=== PATIENT | male | born 1975 | race Caucasian/White ===

== ENCOUNTER 2019-04-28 08:36 | Outpatient (CLI) | payer BC, SELFPAY ==
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
== END 2019-04-28 08:56 ==
PROVIDERS: PCP Internal Medicine; Visit Provider Specialist/Technologist Athletic Trainer
DX: M79.644 Pain in right finger(s) (principal); S62.624A Displaced fracture of middle phalanx of right ring finger, initial encounter for closed fracture; M79.89 Other specified soft tissue disorders
CPT/HCPCS: 73140

== ENCOUNTER 2020-06-18 10:20 | Outpatient (REF) | payer BC, SELFPAY ==
[2020-06-18 14:08] LABS: Abs Immature Grans 0.02 10^3/uL (0.0-0.06); Absolute Basophil Count 0.03 10^3/uL (0.0-0.2); Absolute Eosinophil Count 0.17 10^3/uL (0.0-0.7); Absolute Lymphocyte Count 1.47 10^3/uL (1.2-3.4); Absolute Monocyte Count 0.52 10^3/uL (0.1-0.8); Absolute Neutrophil Count 3.13 10^3/uL (1.2-6.7); Basophils % 0.6; Eosinophils % 3.2; HCT 48.7 % (40.0-50.0); HGB 16.4 g/dL (13.5-17.5); Immature Grans % 0.4; Lymphocytes % 27.5; MCHC 33.7 % (32.0-36.0); MCV 86.2 fL (80-95); MPV 10.2 fL (8.0-11.0); Monocytes % 9.7; Neutrophils % 58.6; Nucleated RBC 0 %; Platelet Count 241 10^3/uL (130-400); RBC 5.65 10^6/uL (4.36-5.78); RDW 12.5 % (11.8-14.1); RDW-SD 38.9 fL; WBC 5.34 10^3/uL (4.4-10.8)
[2020-06-18 14:16] LABS: ALT 37 U/L (16-63); AST 21 U/L (15-37); Albumin 3.8 g/dL (3.4-5.0); Alkaline Phosphatase 82 U/L (46-116); Anion Gap 10.2 mmol/L (3-11); BUN 20 mg/dL (7-18); Bilirubin, Total 0.6 mg/dL (0.2-1.0); CO2 26.8 mmol/L (21.0-32.0); CREATININE 1.23 mg/dL (0.70-1.30); Calcium 9.1 mg/dL (8.5-10.1); Chloride 103 mmol/L (98-107); Glucose 138 mg/dL (74-106); Potassium 4.1 mmol/L (3.5-5.1); Sodium 140 mmol/L (136-145); Total Protein 7.2 g/dL (6.4-8.2)
== END 2020-06-18 10:40 ==
LOC: NCHCN 10:20
PROVIDERS: PCP Internal Medicine; Visit Provider Family Medicine
DX: N45.1 Epididymitis (principal); R10.9 Unspecified abdominal pain
CPT/HCPCS: 80053; 85025

== ENCOUNTER 2020-10-25 19:53 | Outpatient (REF) | payer BC, SELFPAY ==
[2020-10-27 13:43] LABS: COVID-19 RT-PCR UVMMC Result Negative (Negative)
== END 2020-10-25 19:54 | disposition home or self-care (01) ==
LOC: NCHCN 19:53
PROVIDERS: PCP Internal Medicine; Visit Provider Family Medicine
DX: Z20.822 Contact with and (suspected) exposure to COVID-19 (principal)
CPT/HCPCS: U0003

== ENCOUNTER 2020-11-11 09:37 | Outpatient (REF) | payer BC, SELFPAY ==
[2020-11-11 13:29] LABS: ALT 39 U/L (16-63); AST 21 U/L (15-37); Albumin 3.7 g/dL (3.4-5.0); Alkaline Phosphatase 101 U/L (46-116); Anion Gap 5.7 mmol/L (3-11); BUN 16 mg/dL (7-18); Bilirubin, Total 0.6 mg/dL (0.2-1.0); CO2 31.3 mmol/L (21.0-32.0); CREATININE 1.3 mg/dL (0.70-1.30); Chloride 106 mmol/L (98-107); Glucose 115 mg/dL (74-106); Potassium 5.1 mmol/L (3.5-5.1); Sodium 143 mmol/L (136-145)
[2020-11-11 13:45] LABS: Cholesterol 259 mg/dL (<200); HDL Cholesterol 35 mg/dL (40-60); Triglyceride 766 mg/dL (<150)
[2020-11-11 14:14] LABS: LDL CHOLESTEROL 80 mg/dL (<100)
== END 2020-11-11 09:38 | disposition home or self-care (01) ==
LOC: NCHCN 09:37
PROVIDERS: Family Medicine; PCP Internal Medicine; Visit Provider Internal Medicine
DX: E78.1 Pure hyperglyceridemia (principal); R73.03 Prediabetes; Z00.00 Encounter for general adult medical examination without abnormal findings; Q60.0 Renal agenesis, unilateral
CPT/HCPCS: 80053; 80061; 83721

== ENCOUNTER 2020-12-12 20:26 | Emergency (ER) | payer BC, SELFPAY ==
[2020-12-12 20:33] VITALS: BP 112/84; PULSE 83; RESP 16; TEMP 36.9; O2SAT 99
[2020-12-12] MEDS: Normal Saline 1,000 ML 1000 ML IV (21:32)
[2020-12-12] MEDS: Ondansetron 4 MG/2 ML VIAL IVP (21:33)
[2020-12-12] MEDS: Ketorolac 15 MG/ML VIAL IVP (21:33)
[2020-12-12] MEDS: Acetaminophen 325 MG TAB 650 MG PO (21:36)
[2020-12-12] MEDS: predniSONE 20 MG TAB 60 MG PO (21:36)
[2020-12-12 21:51] LABS: Abs Immature Grans 0.03 10^3/uL (0.0-0.06); Absolute Basophil Count 0.05 10^3/uL (0.0-0.2); Absolute Lymphocyte Count 1.05 10^3/uL (1.2-3.4); Absolute Monocyte Count 1.03 10^3/uL (0.1-0.8); Absolute Neutrophil Count 7.35 10^3/uL (1.2-6.7); Basophils % 0.5; HCT 45.4 % (40.0-50.0); Immature Grans % 0.3; Lymphocytes % 10.6; MCV 87.8 fL (80-95); MPV 9.8 fL (8.0-11.0); Monocytes % 10.4; Neutrophils % 74.2; Nucleated RBC 0 %; Platelet Count 203 10^3/uL (130-400); RBC 5.17 10^6/uL (4.36-5.78); RDW 12.7 % (11.8-14.1); WBC 9.91 10^3/uL (4.4-10.8)
[2020-12-12 22:04] LABS: ALT 32 U/L (16-63); AST 18 U/L (15-37); Albumin 3.5 g/dL (3.4-5.0); Alkaline Phosphatase 97 U/L (46-116); Anion Gap 6.6 mmol/L (3-11); BUN 22 mg/dL (7-18); Bilirubin, Total 0.5 mg/dL (0.2-1.0); CO2 28.4 mmol/L (21.0-32.0); CREATININE 1.3 mg/dL (0.70-1.30); Calcium 8.7 mg/dL (8.5-10.1); Chloride 105 mmol/L (98-107); Glucose 103 mg/dL (74-106); Sodium 140 mmol/L (136-145); Total Protein 6.7 g/dL (6.4-8.2)
[2020-12-12 22:06] LABS: Creatine Kinase 165 U/L (39-308)
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
== END 2020-12-12 23:50 | disposition home or self-care (01) ==
PROVIDERS: Emergency Provider Physician Assistant; PCP Internal Medicine
DX: L23.7 Allergic contact dermatitis due to plants, except food (principal); R11.2 Nausea with vomiting, unspecified
CPT/HCPCS: 36415; 80053; 82550; 96361; 96374; 96375; 99284; 85025; J1885; J2405; J7512

== ENCOUNTER 2021-05-11 09:04 | Outpatient (REF) | payer BC, SELFPAY ==
[2021-05-11 15:45] LABS: ALT 39 U/L (16-63); AST 21 U/L (15-37); Alkaline Phosphatase 85 U/L (46-116); Anion Gap 7.2 mmol/L (3-11); BUN 19 mg/dL (7-18); Bilirubin, Total 0.6 mg/dL (0.2-1.0); CO2 30.8 mmol/L (21.0-32.0); CREATININE 1.2 mg/dL (0.70-1.30); Calcium 9.1 mg/dL (8.5-10.1); Chloride 104 mmol/L (98-107); Cholesterol 258 mg/dL (<200); Glucose 107 mg/dL (74-106); HDL Cholesterol 40 mg/dL (40-60); Potassium 4.9 mmol/L (3.5-5.1); Sodium 142 mmol/L (136-145); Triglyceride 489 mg/dL (<150)
[2021-05-11 15:59] LABS: LDL CHOLESTEROL 116 mg/dL (<100)
== END 2021-05-11 09:05 | disposition home or self-care (01) ==
LOC: NCHCN 09:04
PROVIDERS: PCP Internal Medicine; Visit Provider Family Medicine
DX: R73.03 Prediabetes (principal); E78.1 Pure hyperglyceridemia; E66.9 Obesity, unspecified
CPT/HCPCS: 80053; 80061; 83721

== ENCOUNTER 2021-06-27 09:12 | Outpatient (REF) | payer BC, SELFPAY ==
[2021-06-27 15:39] LABS: ALT 53 U/L (16-63); AST 31 U/L (15-37)
== END 2021-06-27 09:13 | disposition home or self-care (01) ==
LOC: NCHCN 09:12
PROVIDERS: PCP Internal Medicine; Visit Provider Family Medicine
DX: E78.5 Hyperlipidemia, unspecified (principal); R73.03 Prediabetes; E78.1 Pure hyperglyceridemia
CPT/HCPCS: 84450; 84460

== ENCOUNTER 2021-11-02 16:33 | Outpatient (REF) | payer BC, SELFPAY ==
[2021-11-02 15:25] LABS: HCT 46.6 % (40.0-50.0); HGB 15.1 g/dL (13.5-17.5); MCH 29.4 pg (27.0-33.0); MCHC 32.4 % (32.0-36.0); MCV 91 fL (80-95); MPV 9.9 fL (8.0-11.0); Platelet Count 222 10^3/uL (130-400); RBC 5.13 10^6/uL (4.36-5.78); RDW 12.5 % (11.8-14.1); RDW-SD 41.1 fL
[2021-11-02 15:44] LABS: Anion Gap 8.1 mmol/L (3-11); BUN 23 mg/dL (7-18); CO2 27.9 mmol/L (21.0-32.0); CREATININE 1.2 mg/dL (0.70-1.30); Calcium 8.8 mg/dL (8.5-10.1); Calculated LDL 57 mg/dL (<100); Chloride 107 mmol/L (98-107); Cholesterol 122 mg/dL (<200); Glucose 115 mg/dL (74-106); HDL Cholesterol 41 mg/dL (40-60); Potassium 4.7 mmol/L (3.5-5.1); Sodium 143 mmol/L (136-145); Triglyceride 123 mg/dL (<150)
== END 2021-11-02 16:34 | disposition home or self-care (01) ==
LOC: NCHCN 16:33
PROVIDERS: PCP Internal Medicine; Visit Provider Internal Medicine
DX: E78.5 Hyperlipidemia, unspecified (principal); R73.03 Prediabetes; E78.1 Pure hyperglyceridemia; Q60.0 Renal agenesis, unilateral; Z00.00 Encounter for general adult medical examination without abnormal findings
CPT/HCPCS: 80048; 80061; 85027

== ENCOUNTER 2022-11-14 11:21 | Outpatient (REF) | payer BC, SELFPAY ==
[2022-11-14 15:58] LABS: ALT 47 U/L (16-63); AST 24 U/L (15-37); Albumin 3.8 g/dL (3.4-5.0); Alkaline Phosphatase 119 U/L (46-116); Anion Gap 3.9 mmol/L (3-11); BUN 15 mg/dL (7-18); Bilirubin, Total 0.7 mg/dL (0.2-1.0); CO2 31.1 mmol/L (21.0-32.0); CREATININE 1.2 mg/dL (0.70-1.30); Calcium 9.1 mg/dL (8.5-10.1); Calculated LDL 50 mg/dL (<100); Chloride 106 mmol/L (98-107); Cholesterol 141 mg/dL (<200); Estimated GFR 75.06 (mL/min/1.73m2); Glucose 111 mg/dL (74-106); HDL Cholesterol 44 mg/dL (40-60); Potassium 4.8 mmol/L (3.5-5.1); Sodium 141 mmol/L (136-145); Total Protein 7.2 g/dL (6.4-8.2); Triglyceride 235 mg/dL (<150)
== END 2022-11-14 11:22 | disposition home or self-care (01) ==
LOC: NCHCN 11:21
PROVIDERS: PCP Internal Medicine; Visit Provider Family Medicine
DX: Z00.00 Encounter for general adult medical examination without abnormal findings (principal); E78.1 Pure hyperglyceridemia
CPT/HCPCS: 80053; 80061

== ENCOUNTER → 2023-09-20 08:57 | Outpatient (BNVA) | payer MEDICARE, SELFPAY | PROVIDERS: PCP Internal Medicine; Referring Provider Internal Medicine; Visit Provider Surgery | DX: Z12.11 Encounter for screening for malignant neoplasm of colon (principal); Z80.0 Family history of malignant neoplasm of digestive organs ==

== ENCOUNTER 2023-10-12 10:18 | Day surgery (SDC) | payer OTHER, SELFPAY ==
--- NOTE | 2023-10-11 16:46 | W.COLOREPORT ---
Date of service: 10/12/23 Time of Service: 13:11 Colonoscopy Report Date of procedure: 10/12/23 Pre-op diagnosis general: Mother had CRC in 30's Post-op diagnosis procedure note: other (polyp) Surgeon: Cynthia Luna Anesthesia Type: General:No Airway Estimated blood loss (mL): 1 Pathology: other Complications: None Disposition: same day Prep: Miralax/Dulcolax Retraction Time: 10 Procedure Description: After informed consent was obtained the patient was taken to the procedure room and placed in a left decubitous position. Monitors were applied and a time out was done. The patients name, date of , procedure, allergies to medications and metal in their body was reviewed. The patient was then sedated. Once sedated and comfortable a rectal exam was done. External exam was normal. Internal exam revealed a normal sphincter tone and no palpable masses. The prostate without masses. The scope was then introduced and retrofelexed. No internal hemorrhoids were identified. The scope was then advanced to the cecum without difficulty. The TI and appendiceal orifice were identified. The scope was then slowly retracted over 10 minutes back into the rectum. He had a 0.5 mm polyp in the rectum that is removed by cold biting forcep. All specimen is retrieved and no bleeding is noted. There are no AVMs or diverticula visualized. Mucosa is pink and healthy with a normal vascular pattern. The scope was removed and the patient was woken up and taken back to Same day surgery in stable condition. The patient tolerated the procedure well and there were no immediate complications. Follow up: The patient should follow up in 5 years unless they develop changes in bowel habits or other new gastrointestinal complaints.
--- NOTE | 2023-10-11 16:47 | PDOC.DSDIS_ITS ---
Date of service: 10/12/23 Time of Service: 13:14 Discharge Plan Disposition Patient Disposition: Home Condition: Good Discharge Details Reason For Visit: Colon cancer screening Attending Provider: Cynthia Luna Primary Care Provider: Kevin Su Home Meds and New Rx's Prescriptions: Continued sildenafil 50 mg tablet 50 mg PO DAILY PRN Rx Instructions: administer 30 minutes to 4 hours before activity atorvastatin 40 mg tablet 40 mg PO DAILY Discontinued bisacodyl [Dulcolax (bisacodyl)] 5 mg tablet,delayed release (DR/EC) 5 mg PO ONCE Qty: 4 0RF polyethylene glycol 3350 17 gram/dose powder 17 g PO DAILY Qty: 238 0RF Discharge Instructions Additional Instructions: DSU Colonoscopy Post- Op Instructions Instructions for Everyone who is given Anesthesia: For your safety, please do the following for the next twenty-four (24) hours: *Do Not operate a motor vehicle (car, truck, motorcycle, etc.) *Do Not drink alcoholic beverages or use any recreational drugs for the first 24 hours or while taking pain medications. The medications in your body may have a reaction that can be dangerous. *Do Not make any important decisions or sign any important papers. Findings: Very small polyp. My office will send you a letter in 2 to 3 weeks time with the results of the pathology. Follow up: Repeat in 5 years 1. No lifting over 20 pounds or strenuous activity for the first 24 hours after your procedure. After 24 hours there are no restrictions on your activity but you may feel fatigued for a few days. 2. After you arrive home you may have a light meal and return to your normal diet as you can tolerate it without feeling sick to your stomach. 3. You may have a bloated, gaseous feeling in your belly (abdomen) after a colonoscopy. Passing gas and belching will help. Walking or lying down on your left side with your knees flexed may relieve the discomfort. Call the office at [phone] (Office) or [phone] (Hospital) right away if you notice any of the following: a.Vomiting of blood or ?coffee ground stools?. b.Rectal bleeding 1Tbsp, blood clots or continuous bleeding. c.Severe belly (abdominal) pain. d.A hard distended belly (abdomen) and an inability to pass gas. 4. Please don?t expect to have a normal BM (bowel movement) for 2-3 days after your procedure. 5. If there are questions regarding the findings of your procedure, please contact your doctor 6. If you are unable to contact your doctor with a problem, contact the hospital at [phone]. 7. Continue all your regular medications unless directed otherwise. I understand the above instructions and have no questions. Signature of Patient or Adult Escort Name of Responsible Adult Escort Signature of Nurse Date/Time Activity:: see above Diet:: see above Discharge Orders Discharge Orders: Discharge Order (Routine); Ordered 10/12/23 Ordered By: Cynthia Luna DS: Diagnosis Discharge Diagnosis (1) Dyslipidemia: Status: Acute (2) Family history of colon cancer in mother: Status: Acute Asessment and Plan: The patient is seen and examined after their colonoscopy.? The patient has been able to pass gas.? They are not having abdominal pain.? They have been able to tolerate liquids and a snack.? They do not have any nausea or vomiting.? They are not having any chest pain or shortness of breath.??? They are not having any rectal bleeding. Their vital signs have been stable-see nursing notes. We discussed findings during their colonoscopy, and any biopsies that were done/polyps that were removed. The patient will be sent a letter with any biopsy results, and when to repeat the colonoscopy.-see discharge instructions. Patient was given explicit instructions to follow-up regarding colonoscopy-refer to discharge instructions.? We reviewed resumption of medications. Patient verbalized understanding and discharged in stable and satisfactory condition- See nursing notes. (3) Single kidney: (4) Obesity: (5) History of snoring:
[2023-10-12 10:50] VITALS: BP 124/86; PULSE 65; RESP 16; TEMP 36.8; O2SAT 95
[2023-10-12] MEDS: Lactated Ringers 1,000 ML 80 ML IV (11:15)
--- NOTE | 2023-10-12 12:06 | W.ANESPRE ---
General Info Date of Service Date Performed: 10/12/23 Height: 5 ft 10 in Weight: 104.8 kg Body Mass Index (BMI): 33.1 Surgical Procedure: Operation Date: 10/12/23 11:20 Proposed Procedure Side Surgeon james Luna, Meds Allergies and Home Medications Allergies Allergy/AdvReac Type Severity Reaction Status Date / Time No Known Allergies Allergy Verified 10/12/23 10:47 Home Medication Medication Instructions Recorded atorvastatin 40 mg tablet 40 mg PO DAILY 06/28/23 sildenafil 50 mg tablet 50 mg PO DAILY PRN 06/28/23 Current Visit Medications: Current Medications Generic Name Dose Route Start Last Admin Trade Name Freq PRN Reason Stop Dose Admin Hyoscyamine Sulfate 0.125 mg 10/12/23 04:44 Hyoscyamine 0.125 Mg Sl/Oral/Chew SL 11/11/23 04:43 DIRECTED PRN Ringer's Solution 1,000 mls @ 80 mls/hr 10/12/23 06:00 10/12/23 11:15 IV 10/12/23 23:59 80 mls/hr INFUSION VELMA Administration IV Miscellaneous Supplies 1 each 10/12/23 06:00 Iv Access IV 10/12/23 23:59 DIRECTED VELMA Ondansetron HCl 4 mg 10/12/23 04:44 Ondansetron 4 Mg/2 Ml Vial IVP 11/11/23 04:43 Q4H PRN PRN Nausea / Vomiting Sodium Chloride 0 ml 10/12/23 06:00 Normal Saline Flush 10 Ml Syr IV 10/12/23 23:59 PRN PRN Sodium Chloride 0 ml 10/12/23 06:00 Normal Saline 10 Ml Vial IJ 10/12/23 23:59 DIRECTED PRN Sterile Water 0 ml 10/12/23 06:00 Water,Injection,Sterile 10 Ml Vial IJ 10/12/23 23:59 DIRECTED PRN PFSH Active Problems Active Problems: Problem Status Onset Code Family history of colon cancer in mother Z80.0 Varicose veins of left lower leg I83.92 Erectile dysfunction N52.9 Dyslipidemia E78.5 Contact dermatitis L25.9 Nausea & vomiting R11.2 Medical History Medical History Obesity Single kidney congenital History of snoring Surgical History Surgical History Colonoscopy - IV Sedation (11/24/16) Tobacco Smoking/Tobacco Use Status: Never Substance Use Substance use: Never Substance use type: does not use Vital Signs and Lab Results Vital Signs Most Recent Vital Signs in EMR: Most Recent Vital Signs Temp Pulse Resp BP Pulse Ox 36.8 C 65 16 124/86 95 10/12/23 10:50 10/12/23 10:50 10/12/23 10:50 10/12/23 10:50 10/12/23 10:50 Lab Results Blood Type / Crossmatch: No Data to Display Complete Blood Count: No Data to Display Complete Metabolic Panel: No Data to Display Liver Function Panel: No Data to Display Coagulation Panel: No Data to Display Cardiac Panel: No Data to Display Arterial Blood Gas: No Data to Display Venous Blood Gas: No Data to Display Pancreas Panel: No Data to Display Thyroid Panel: No Data to Display Infectious Disease: No Data to Display Blood Cultures: No Data to Display Toxicology Panel: No Data to Display Anesthesia Assessment and Plan Anesthesia History Personal History: No History of Anesthesia Complications Family History: No Family History of Anesthesia Complications Exercise Tolerance Exercise Tolerance: Metabolic Equivalents>4 Pertinent Negatives Pertinent Negatives: No Symptoms of GERD, No Major Cardiovascular Symptoms or Complaints and No Major Pulmonary Symptoms or Complaints Cardiac & Pulmonary Exam Cardiac Exam: Normal S1/S2 Heart Sounds Pulmonary Exam: Clear Bilateral Breath Sounds Implantable Cardiac Device Does patient have a Pacemaker or an ICD?: No Airway Exam Known Difficult Airway: No Mallampati Class: 1 Mouth Opening: Normal (> 3cm) Thyromental Distance: Greater than 3 cm Neck Range of Motion: Full ROM Neck Circumference: Normal Teeth Condition: Normal Dentition ASA Classification ASA Score: ASA 2 Emergency Case?: No NPO Status NPO Status: NPO Clears >2 hours, Solids >8 hours Anesthesia Plan Resuscitation Status: Full Code Anesthesia Technique: General Anesthesia Airway Planned: Natural Airway Monitors Used: Standard Monitors
[2023-10-12 12:08] VITALS: BMI 33.1
--- NOTE | 2023-10-12 12:39 | BOWEL_PTH ---
PATIENT: El Garcia LOC: [facility] U#:[id number] AGE/SX: 48/M ROOM: RE10/12/[address]: Cynthia Luna : 1975 BED: DIS: 10/12/2023 SPEC #: [id number] RECD: 10/12/23 13:50 STATUS: ANNITA REQ #: [id number] ANGELA: 10/12/23 12:[address]: Cynthia Luna DEPT: Surgical Specimen RECD BY: Layla Domínguez ENTERED: 10/12/23 13:51 SP TYPE: Bowel OTHR DR: Kevin Su Tissues: 1 - BIOPSY BOWEL Procedures: GROSS AND MICRO LEVEL 4 Comments: [id number]
[2023-10-12 13:09] VITALS: BP 105/73; PULSE 65; RESP 18; TEMP 36.4; O2SAT 94
[2023-10-12 13:39] VITALS: BP 113/79; PULSE 56; RESP 16; TEMP 36.4; O2SAT 94
[2023-10-12 14:09] VITALS: BP 122/85; PULSE 52; RESP 16; TEMP 36.9; O2SAT 96
--- NOTE | 2023-10-12 14:46 | W.ANESPOSTOP ---
Postoperative Evaluation Date, Time and Location Date Performed: 10/12/23 Time Performed: 14:27 Patient Location: PACU Vital Signs Most Recent Imported Vital Signs: Most Recent Vital Signs Temp Pulse Resp BP Pulse Ox 36.9 C 52 L 16 122/85 96 10/12/23 14:09 10/12/23 14:09 10/12/23 14:09 10/12/23 14:09 10/12/23 14:09 Pain Score Most Recent Pain Score: Most Recent Pain Score Pain Level 0 10/12/23 14:09 Assessment Mental Status: Arousable with meaningful communication Airway and Respiratory Function: Patent airway with normal (patient baseline) respiratory exam Cardiovascular Function: Hemodynamically Stable Hydration Status: Adequately Hydrated Nausea & Vomiting: No Nausea or Vomiting Pain: Pt. Denies Any Pain Peripheral Nerve Block: Patient did not receive a nerve block Postoperative Comments:: Discussed with both the patient and his the very slight potential of aspiration during the procedure, but unlikely secondary to no coughing or oxygen requirements. See Anesthesia Intraop record. Patient encouraged to reach out with any questions, concerns for coughing, new fever, or shortness of breath.
== END 2023-10-12 14:52 | disposition home or self-care (01) ==
PROVIDERS: PCP Family Medicine; Visit Provider Surgery
PROC: 0DJD8ZZ Inspection of Lower Intestinal Tract, Via Natural or Artificial Opening Endoscopic (ICD-10-PCS; CPT 45378; principal; 2023-10-12 11:15)
DX: Z80.0 Family history of malignant neoplasm of digestive organs; Z87.898 Personal history of other specified conditions; Z12.11 Encounter for screening for malignant neoplasm of colon; K62.1 Rectal polyp
CPT/HCPCS: 45380; 88305; J2001; J2250; J2704; J3010

== ENCOUNTER 2024-11-20 18:00 | Outpatient (REF) | payer OTHER, SELFPAY ==
[2024-11-20 17:07] LABS: ALT 54 U/L (16-63); AST 29 U/L (15-37); Albumin 3.8 g/dL (3.4-5.0); Alkaline Phosphatase 130 U/L (46-116); Anion Gap 7.1 mmol/L (3-11); BUN 15 mg/dL (7-18); Bilirubin, Total 0.7 mg/dL (0.2-1.0); CO2 29.9 mmol/L (21.0-32.0); CREATININE 1.1 mg/dL (0.70-1.30); Calcium 8.9 mg/dL (8.5-10.1); Chloride 104 mmol/L (98-107); Cholesterol 173 mg/dL (<200); Estimated GFR 82.29 (mL/min/1.73m2); Glucose 112 mg/dL (74-106); HDL Cholesterol 37 mg/dL (>or=40); Potassium 4.4 mmol/L (3.5-5.1); Sodium 141 mmol/L (136-145); Total Protein 6.9 g/dL (6.4-8.2); Triglyceride 627 mg/dL (<150)
[2024-11-20 17:41] LABS: LDL CHOLESTEROL 45 mg/dL (<100)
== END 2024-11-20 18:01 | disposition home or self-care (01) ==
LOC: NCHCN 18:00
PROVIDERS: PCP Family Medicine; Visit Provider Family Medicine
DX: Z00.00 Encounter for general adult medical examination without abnormal findings (principal)
CPT/HCPCS: 80053; 80061; 83721

== ENCOUNTER 2025-03-03 20:50 | Outpatient (REF) | payer OTHER, SELFPAY ==
[2025-03-03 21:43] LABS: Abs Immature Grans 0.02 10^3/uL (0.0-0.06); HCT 45.2 % (40.0-50.0); HGB 15.1 g/dL (13.5-17.5); Immature Grans % 0.4 %; MCH 29.3 pg (27.0-33.0); MCHC 33.4 % (32.0-36.0); MCV 88 fL (80-95); MPV 9.6 fL (8.0-11.0); Platelet Count 229 10^3/uL (130-400); RBC 5.16 10^6/uL (4.36-5.78); RDW 12.7 % (11.8-14.1); RDW-SD 40.4 fL; WBC 5.63 10^3/uL (4.4-10.8)
[2025-03-03 22:02] LABS: ALT 47 U/L (16-63); AST 27 U/L (15-37); Albumin 4.0 g/dL (3.4-5.0); Alkaline Phosphatase 107 U/L (46-116); Anion Gap 6.6 mmol/L (3-11); BUN 20 mg/dL (7-18); Bilirubin, Total 1.0 mg/dL (0.2-1.0); CO2 30.4 mmol/L (21.0-32.0); Calcium 8.9 mg/dL (8.5-10.1); Chloride 104 mmol/L (98-107); Estimated GFR 74.13 (mL/min/1.73m2); Glucose 98 mg/dL (74-106); Potassium 4.2 mmol/L (3.5-5.1); Sodium 141 mmol/L (136-145); Total Protein 7.1 g/dL (6.4-8.2)
[2025-03-03 23:23] LABS: Lipase 25 U/L (<78)
== END 2025-03-03 20:51 | disposition home or self-care (01) ==
LOC: NCHCN 20:50
PROVIDERS: PCP Family Medicine; Visit Provider Family Medicine
DX: R10.9 Unspecified abdominal pain (principal)
CPT/HCPCS: 80053; 83690; 85025